=== PATIENT | male | born 1960 | race Caucasian/White ===

== ENCOUNTER 2020-09-15 14:05 | Outpatient (CLI) | payer BC, SELFPAY ==
--- NOTE | ~2020-09-15 | CT_ITS ---
EXAMINATION: CT diagnostic chest w con DATE: 09/15/2020 14:32 INDICATION: Hyponatremia. Patient is a smoker. TECHNIQUE: Computed tomography (CT) of the chest was performed with 75 cc Omnipaque 350 intravenous c ontrast. The dose-length product was 209.65 mGy-cm. Automated exposure control and iterative reconstr uction technique were employed. COMPARISON: None FINDINGS: There is a moderate size hiatal hernia. Heart size is normal. No significant pleural or per icardial effusion. Aorta is normal caliber without aneurysm or dissection. There is coronary atherosc lerosis. There is moderate emphysema. No endobronchial lesions. There is focal groundglass consolidat ion in the lingula. No suspicious pulmonary nodules or masses. Mild thoracic spondylosis. No lytic or blastic lesions are identified. IMPRESSION: 1. Focal groundglass consolidation of the lingula which may represent atelectasis or developing pneum onia. 2: Emphysema. 3: Moderate size hiatal hernia. Reviewed, dictated and finalized at location A. IMPRESSION: 1. Focal groundglass consolidation of the lingula which may represent atelectas is or developing pneumonia. 2: Emphysema. 3: Moderate size hiatal hernia.
== END 2020-09-15 14:06 | disposition home or self-care (01) ==
PROVIDERS: PCP Family Medicine; Visit Provider Family Medicine
DX: E87.1 Hypo-osmolality and hyponatremia (principal); K44.9 Diaphragmatic hernia without obstruction or gangrene; J43.9 Emphysema, unspecified
CPT/HCPCS: 71260; Q9967